=== PATIENT | female | born 2000 | race Two or more races ===

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

== ENCOUNTER 2022-02-11 23:38 | Emergency (ER) | payer OTHER ==
[2022-02-11 23:49] VITALS: BP 147/90; PULSE 80; RESP 17; TEMP 98.1; BMI 27.9
[2022-02-12] MEDS ORDERED: AMOX TR/POT CLAV 875MG/125MG TABLETS (FP) PO ONE (00:52)
[2022-02-12] MEDS ORDERED: DIPHTH,PERTUSS(ACELL),TET 0.5 ML DISP.SYRIN IM ONE (00:52)
[2022-02-12] MEDS ORDERED: AMOX TR/POT CLAV 875MG/125MG TABLETS (FP) ONE (00:58)
== END 2022-02-12 01:27 | disposition home or self-care (01) ==
LOC: JERFT 23:38 → JER 23:38 → JERFT 02-12 01:27
DX: S61.431A Puncture wound without foreign body of right hand, initial encounter (principal); S50.311A Abrasion of right elbow, initial encounter; W54.0XXA Bitten by dog, initial encounter
CPT/HCPCS: 99283-25

== ENCOUNTER 2022-10-11 03:49 | Emergency (ER) | payer OTHER ==
[2022-10-11 04:18] VITALS: BP 129/85; PULSE 65; RESP 18; TEMP 97.7; BMI 27.1
[2022-10-11] MEDS: ALBUTEROL SO4 2.5/IPRATROPIUM 0.5 INH SOL 3 ML VIAL.NEB. NEB SCH (04:29)
[2022-10-11] MEDS ORDERED: ALBUTEROL SO4 HFA INHALER IH ONE (05:36)
== END 2022-10-11 05:32 | disposition home or self-care (01) ==
LOC: JER 03:49
PROC: 3E0F7GC Introduction of Other Therapeutic Substance into Respiratory Tract, Via Natural or Artificial Opening (ICD-10-PCS; principal; 2022-10-11)
DX: J45.909 Unspecified asthma, uncomplicated (principal); R06.02 Shortness of breath; R07.89 Other chest pain; Z20.822 Contact with and (suspected) exposure to COVID-19
CPT/HCPCS: 0241U-QW; 99283-25

== ENCOUNTER 2023-07-02 10:11 | Emergency (ER) | payer OTHER ==
[2023-07-02 10:59] VITALS: BMI 28.9
[2023-07-02] MEDS ORDERED: KETOROLAC TROMETHAMINE 30 MG/1 ML VIAL ONE (12:20)
[2023-07-02] MEDS: KETOROLAC TROMETHAMINE 30 MG/1 ML VIAL IM ONE (12:26)
[2023-07-02 12:49] VITALS: BP 131/81; PULSE 117; RESP 20; TEMP 100.2
== END 2023-07-02 12:51 | disposition home or self-care (01) ==
LOC: JERFT 10:11
PROC: 3E0233Z Introduction of Anti-inflammatory into Muscle, Percutaneous Approach (ICD-10-PCS; principal; 2023-07-02)
DX: R50.9 Fever, unspecified (principal); M79.10 Myalgia, unspecified site; R43.9 Unspecified disturbances of smell and taste; J10.1 Influenza due to other identified influenza virus with other respiratory manifestations; Z20.822 Contact with and (suspected) exposure to COVID-19
CPT/HCPCS: 0241U-QW; 99284-25